=== PATIENT | female | born 1955 | race Two or more races ===

== ENCOUNTER 2019-02-19 10:11 | Emergency (ER) ==
[~2019-02-19] VITALS: Ht 177.8 cm; Wt 80.0 kg
[2019-02-19 10:20] VITALS: BP 120/79
--- NOTE | 2019-02-19 10:45 | NUR ---
PT STATES SHE ATE THREE EGGS AND TWO PIECES OF TOAST AT 0800.
[2019-02-19] MEDS ORDERED: ondansetron 4mg rapidly disintigrating tab PO ONE (10:55)
[2019-02-19] MEDS ORDERED: HYDROcodone/acetaminophen 5mg/325mg tablet PO ONE (10:55)
[2019-02-19] MEDS ORDERED: HYDR-3965 PO (11:26)
== END 2019-02-19 11:34 | disposition home or self-care (01) ==
LOC: ER 10:12
DX: S42.292A Other displaced fracture of upper end of left humerus, initial encounter for closed fracture (principal); S72.92XA Unspecified fracture of left femur, initial encounter for closed fracture; V80.010A Animal-rider injured by fall from or being thrown from horse in noncollision accident, initial encounter; Y93.52 Activity, horseback riding; Y92.89 Other specified places as the place of occurrence of the external cause; Y99.9 Unspecified external cause status
CPT/HCPCS: 73030; 99283

== ENCOUNTER 2019-03-02 07:18 | Inpatient (IN) | payer BC ==
[2019-02-26 11:06] LABS: BASOPHILS % (AUTO) 0.5 % (0-1); EOSINOPHILS # (AUTO) 0.1 X10'3 (0-0.9); EOSINOPHILS % (AUTO) 1.2 % (0-6); LYMPHOCYTES % (AUTO) 17.1 % (21-51); MEAN CORPUSCULAR HEMOGLOBIN 31.3 PG (27.0-31.0); MEAN CORPUSCULAR HGB CONC 33.7 g/dL (33.0-36.5); MEAN CORPUSCULAR VOLUME 92.9 FL (78-98); MEAN PLATELET VOLUME 7.6 FL (7.4-10.4); MONOCYTES # (AUTO) 0.5 X10'3 (0-0.9); MONOCYTES % (AUTO) 9.3 % (2-12); NEUTROPHILS # (AUTO) 4.2 X10'3 (1.8-7.7); NEUTROPHILS % (AUTO) 71.9 % (42-75); PRE OP HEMATOCRIT 38.7 % (35.0-45.0); PRE OP HEMOGLOBIN 13.1 g/dL (12.0-16.0); PRE OP PLATELET COUNT 293 X10'3 (140-440); RED BLOOD COUNT 4.17 X10'6 (4.20-5.60); RED CELL DISTRIBUTION WIDTH 13.6 % (11.5-14.5)
[2019-02-26 11:15] LABS: PRE OP PROTIME 10.3 SECONDS (9.0-12.0)
[2019-02-26 11:45] LABS: ALBUMIN 3.5 G/DL (3.4-5.0); ALBUMIN/GLOBULIN RATIO 0.9 (1.1-1.5); ALKALINE PHOSPHATASE 70 IU/L (46-116); BLOOD UREA NITROGEN 14 MG/DL (7-18); BUN/CREATININE RATIO 22.6 (6.6-38.0); CHLORIDE 105 MMOL/L (99-107); CREATININE 0.62 MG/DL (0.40-0.90); PRE OP ALT 31 U/L (30-65); PRE OP ANION GAP 3 (8-16); PRE OP AST 23 U/L (10-37); PRE OP BILIRUB, TOTAL 0.6 MG/DL (0.0-1.0); PRE OP GLUCOSE 95 MG/DL (70-104); PRE OP POTASSIUM 3.8 MMOL/L (3.4-5.1); PRE OP SODIUM 139 MMOL/L (135-145); TOTAL CARBON DIOXIDE 30.9 MMOL/L (24-32); TOTAL PROTEIN 7.4 G/DL (6.4-8.2); eGFR > 90 ML/MIN
[~2019-03-02] VITALS: Ht 177.8 cm; Wt 82.1 kg
[2019-03-02] VITALS (15 sets, daily range): BP systolic 115–179; BP diastolic 72–84
[~2019-03-02 07:18] MED LIST: HYDR-3965 PO; IBUP-1984 PO
[2019-03-02] MEDS ORDERED: ceFAZolin inj. 2,000 MG in dextrose 5%-water 50ml 50 ML IV ONE (08:15)
[2019-03-02] MEDS ORDERED: ringers solution, lacted 1,000 ML IV SCH ×2 (08:15→12:46)
[2019-03-02] MEDS ORDERED: famotidine 20mg tablet PO ONE (08:15)
[2019-03-02] MEDS ORDERED: ketorolac trometh. 30mg/ml inj. ONE (09:54)
[2019-03-02] MEDS ORDERED: BUPIVAcaine/PF 2.5 mg/ml (0.25%) 30ml vial ONE (09:54)
[2019-03-02] MEDS ORDERED: sevoflurane 250ml liquid IH ONE (10:43)
[2019-03-02] MEDS ORDERED: fentaNYL/PF 50MCG/1 ML 2ML syringe ONE (10:45)
[2019-03-02] MEDS ORDERED: midazolam 2 mg/2 ml injection ONE ×2 (10:45)
[2019-03-02] MEDS ORDERED: propofol inj 20 ML IV ONE (10:51)
[2019-03-02] MEDS ORDERED: ROPIVAcaine 0.5% (5mg/ml) 30ml vial ONE (10:51)
[2019-03-02] MEDS ORDERED: acetaminophen 325mg tablet PO PRN (11:45)
[2019-03-02] MEDS ORDERED: diphenhydrAMINE 25mg capsule PO PRN ×2 (11:45)
[2019-03-02] MEDS ORDERED: oxyCODONE IR 5mg (immed. release) tablet PO PRN (11:45)
[2019-03-02] MEDS ORDERED: bisacodyl 10mg suppository rectal RC PRN (11:45)
[2019-03-02] MEDS ORDERED: ondansetron/PF 4mg/2ml inj IV PRN ×2 (11:45→12:50)
[2019-03-02] MEDS ORDERED: HYDROmorphone inj. 0.5 MG/0.5 ML DISP.SYRIN IV PRN (11:45)
[2019-03-02] MEDS ORDERED: HYDROmorphone 1 mg/ml syringe IV PRN (11:45)
[2019-03-02] MEDS ORDERED: magnesium hydroxide 30ml (MOM) UD suspension PO PRN (11:45)
[2019-03-02] MEDS ORDERED: ondansetron/PF 4mg/2ml inj ONE (12:14)
[2019-03-02] MEDS ORDERED: dexamethasone sod phosphate 4mg/ml inj. ONE (12:14)
[2019-03-02] MEDS ORDERED: ROPIVAcaine 0.2%/PF PAIN PUMP 550 ML IJ SCH (12:46)
[2019-03-02] MEDS ORDERED: meperidine/PF 25mg/ml syringe IV PRN ×3 (12:50)
[2019-03-02] MEDS ORDERED: proCHLORperazine 10 MG/2 ml inj IV PRN (12:50)
[2019-03-02] MEDS ORDERED: morphine 4 MG/ML inj SYRINge IV PRN ×2 (12:50)
--- NOTE | 2019-03-02 13:00 | NUR ---
Received from OR via ORTHO BED WITH [facility] , accompanied by Anesthesiologist JOSÉ MIGUEL and report given by Anesthesiolgist. PATIENT WITH 20G PIV IN RIGHT UE RUNNING LR AT100. DENIES PAIN AT THIS TIME. LEFT ANTERIOR SHOULDER HAS A SHOULDER WRAP PRESENT AND POWDER PACK ON. + RADIAL PULSE PRESENT AND ABLE TO WIGGLE FINGERS. CHERELLE GRANDE UPON ARRIVAL WELL [facility]S Addendum: 03/02/19 at 1319 by Christian Ocampo RN, RN Amended: Links added.
--- NOTE | 2019-03-02 13:40 | NUR ---
ALL TRANSFER CRITERIA TO THE FLOOR HAS BEEN ACHIEVED. PAIN OF 3-10. STARTED ON-Q PUMP. VSS. VOIDED VIA BEDPAN PRIOR TO GOING TO THE FLOOR. RN PRESENT TO ACCEPT CARE. REPORT GIVEN TO HAMIDA GARCIA. PATIENT VSS, DRESSING TO LEFT SHOULDER CDI AND SLING IN PLACE. Addendum: 03/02/19 at 1419 by Christian Ocampo RN RN Amended: Links added.
[2019-03-02] MEDS ORDERED: tranexamic acid inj. 800 MG in normal saline 100ml IV soln 100 ML IV ONE (14:45)
[2019-03-02] MEDS: acetaminophen 325mg tablet PO SCH ×2 (16:11→21:45)
[2019-03-02] MEDS: potassium cl 20mEq in 1/2 NS 1,000 ML IV SCH ×2 (16:12→19:44)
[2019-03-02] MEDS: ceFAZolin 1GM/D5W- ADD-VANTAGE 50 ML IV SCH (16:55)
--- NOTE | 2019-03-02 18:38 | NUR ---
Problems reprioritized. Patient report given, questions answered & plan of care reviewed with Puja GARCIA.
[2019-03-02] MEDS ORDERED: sennosides 8.6mg tablet PO SCH (21:00)
[2019-03-03] MEDS: acetaminophen 325mg tablet PO SCH ×2 (01:33→08:04)
[2019-03-03] MEDS: ceFAZolin 1GM/D5W- ADD-VANTAGE 50 ML IV SCH (01:34)
[2019-03-03 02:00] VITALS: BP 130/83
[2019-03-03 03:30] VITALS: BP 130/83
[2019-03-03] MEDS: potassium cl 20mEq in 1/2 NS 1,000 ML IV SCH ×2 (03:44→11:38)
[2019-03-03 05:33] LABS: BASOPHILS % (AUTO) 0.2 % (0-1); EOSINOPHILS % (AUTO) 0.1 % (0-6); HEMATOCRIT 35.3 % (35.0-45.0); LYMPHOCYTES # (AUTO) 1.3 X10'3 (1.1-4.8); LYMPHOCYTES % (AUTO) 17.7 % (21-51); MEAN CORPUSCULAR HEMOGLOBIN 31.4 PG (27.0-31.0); MEAN CORPUSCULAR HGB CONC 34.1 g/dL (33.0-36.5); MEAN CORPUSCULAR VOLUME 92.1 FL (78-98); MEAN PLATELET VOLUME 7.8 FL (7.4-10.4); MONOCYTES # (AUTO) 0.8 X10'3 (0-0.9); MONOCYTES % (AUTO) 11.1 % (2-12); NEUTROPHILS # (AUTO) 5.2 X10'3 (1.8-7.7); NEUTROPHILS % (AUTO) 70.9 % (42-75); PLATELET COUNT 286 X10'3 (140-440); RED BLOOD COUNT 3.83 X10'6 (4.20-5.60); RED CELL DISTRIBUTION WIDTH 13.5 % (11.5-14.5); WHITE BLOOD COUNT 7.3 X10'3 (4.5-11.0)
[2019-03-03 06:00] VITALS: BP 139/77
[2019-03-03 06:16] LABS: ANION GAP 9 (8-16); CHLORIDE 107 MMOL/L (99-107); POTASSIUM 3.9 MMOL/L (3.5-5.1); SODIUM 142 MMOL/L (135-145); TOTAL CARBON DIOXIDE 26.3 MMOL/L (24-32)
--- NOTE | 2019-03-03 07:01 | NUR ---
Patient in room ORTHO 4024. I have received report from Puja GARCIA and had the opportunity to ask questions and assume patient care.
--- NOTE | 2019-03-03 08:06 | NUR ---
on-q increased to 8ml/hr
[2019-03-03] MEDS ORDERED: aspirin 325mg tablet PO SCH (08:30)
[2019-03-03] MEDS: oxyCODONE IR 5mg (immed. release) tablet PO PRN ×2 (08:47→12:48)
[2019-03-03 10:00] VITALS: BP 127/77
--- NOTE | 2019-03-03 13:00 | NUR ---
patient discharged to home with , all belongings sent with patient, patient educated on how to D/c on-Q pump, IV taken out, patient stable upon discharge
[2019-03-04] MEDS ORDERED: acetaminophen 325mg tablet PO PRN (11:45)
== END 2019-03-03 13:00 | disposition home or self-care (01) | DRG 470 ==
LOC: PAS IN 07:18 → EDSTATUS 12:00 → ORTHO 4S 13:55
PROVIDERS: ADMIT Orthopaedic Surgery; ATTEND Orthopaedic Surgery
PROC: 0SRC0J9 Replacement of Right Knee Joint with Synthetic Substitute, Cemented, Open Approach (ICD-10-PCS; principal; 2019-02-27)
PROC: 8E0YXBZ Computer Assisted Procedure of Lower Extremity (ICD-10-PCS; 2019-02-27)
PROC: 8E0Y0CZ Robotic Assisted Procedure of Lower Extremity, Open Approach (ICD-10-PCS; 2019-02-27)
PROC: 0PSD04Z Reposition Left Humeral Head with Internal Fixation Device, Open Approach (ICD-10-PCS; 2019-03-02)
DX: S42.222A 2-part displaced fracture of surgical neck of left humerus, initial encounter for closed fracture (principal); M17.11 Unilateral primary osteoarthritis, right knee; M21.161 Varus deformity, not elsewhere classified, right knee; M25.761 Osteophyte, right knee; V80.010A Animal-rider injured by fall from or being thrown from horse in noncollision accident, initial encounter; Y93.89 Activity, other specified; Y92.89 Other specified places as the place of occurrence of the external cause; Y99.8 Other external cause status
CPT/HCPCS: 36415; 73020; 76000; 80051; 80053; 82948; 85025; 85610; 85730; 87081; 93005; 97161; 97530; A4565; A4618; A6449; A7000; C1713; G0378; J0690; J1100; J1170; J1885; J2250; J2405; J2704; J2795; J3010; J3480; J3490; J7060; J7120